=== PATIENT | male | born 1950 | race African-American/Black ===

== ENCOUNTER 2025-06-09 14:28 | Emergency (ER) | payer OTHER ==
[~2025-06-09] VITALS: Ht 175.3 cm; Wt 73.0 kg
[2025-06-09 14:36] VITALS: TEMP 36.7; O2SAT 98
[2025-06-09] MEDS: LIDOCAINE 5% PATCH TOP STA (15:07)
[2025-06-09] MEDS: FAMOTIDINE 20MG TABLET PO ONE (15:15)
[2025-06-09] MEDS ORDERED: LIDO700A30 TP (17:29)
[2025-06-09] MEDS ORDERED: FAMO20TA8 MT (17:29)
[2025-06-09 17:39] VITALS: BP 170/90; PULSE 65; RESP 18; O2SAT 100
== END 2025-06-09 17:40 | disposition home or self-care (01) ==
LOC: ER 15:08
DX: S09.8XXA Other specified injuries of head, initial encounter (principal); R10.13 Epigastric pain; K21.9 Gastro-esophageal reflux disease without esophagitis; R10.22 Pelvic and perineal pain left side; M54.9 Dorsalgia, unspecified; M47.812 Spondylosis without myelopathy or radiculopathy, cervical region; E11.9 Type 2 diabetes mellitus without complications; I10 Essential (primary) hypertension; W07.XXXA Fall from chair, initial encounter; Y93.89 Activity, other specified; Y92.89 Other specified places as the place of occurrence of the external cause; Y99.8 Other external cause status
CPT/HCPCS: 74176; 99284